=== PATIENT | female | born 1970 | race American Indian/Alaskan Native ===

== ENCOUNTER 2021-12-07 01:19 | Emergency (ER) | payer OTHER ==
[2021-12-07] MEDS ORDERED: SODIUM CHLORIDE 0.9% 1000 ML 1,000 ML IV ONE (03:03)
[2021-12-07] MEDS ORDERED: ONDANSETRON 4 MG/2 ML INJ IV ONE (03:09)
[2021-12-07] MEDS ORDERED: MORPHINE 4 MG/1 ML INJ IV ONE (03:09)
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
[2021-12-07 03:59] LABS: Alanine Aminotransferase 18 units/L (7-56); Albumin 4.5 g/dL (3.9-5); Blood Urea Nitrogen 10 mg/dL (7-17); Calcium 9.6 mg/dL (8.4-10.2); Hemolysis Index 5
[2021-12-07 04:00] LABS: Basophils # (Auto) 0.1 K/mm3 (0.0-0.1); Basophils % (Auto) 0.7 % (0.0-1.8); Eosinophils # (Auto) 0.1 K/mm3 (0.0-0.4); Hematocrit 39.7 % (30.3-42.9); Hemoglobin 13.7 gm/dl (10.1-14.3); Lymphocytes % (Auto) 22.7 % (13.4-35.0); Mean Corpuscular HGB Conc 35 % (30-34); Mean Corpuscular Volume 93 fl (79-97); Monocytes # (Auto) 0.6 K/mm3 (0.0-0.8); Monocytes % (Auto) 6.2 % (0.0-7.3); Platelet Count 308 K/mm3 (140-440); Red Blood Count 4.29 M/mm3 (3.65-5.03); Red Cell Distribution Width 12.7 % (13.2-15.2)
[2021-12-07 04:01] LABS: BUN/Creatinine Ratio 14
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
[2021-12-07] MEDS ORDERED: HYDROmorphone 0.5 MG/0.5 ML INJ IV ONE (05:07)
--- NOTE | 2021-12-07 05:13 | Cat Scan Report ---
CT CHEST, ABDOMEN, AND PELVIS WITH CONTRAST INDICATION / CLINICAL IN[place] [facility] [place]CHNIQUE: Axial CT images were obtained through the chest, abdomen, and pelvis after Omnipaque 300, 100 cc IV contrast. All CT scans at this location are performed using CT dose reduction for ALARA by means of automated exposure control. COMPARISON: None available. FINDINGS: HEART: No significant abnormality. CORONARY ARTERY CALCIFICATION: Absent -- None. THORACIC AORTA: No significant abnormality. MEDIASTINUM / BROOKE: No significant abnormality. PLEURA: No pleural effusion. No pneumothorax. LUNGS: No acute air space or interstitial disease. ADDITIONAL CHEST FINDINGS: None. LIVER: No significant abnormality. GALLBLADDER: No significant abnormality. BILE DUCTS: No significant abnormality. PANCREAS: No significant abnormality. SPLEEN: No significant abnormality. ADRENALS: No significant abnormality. RIGHT KIDNEY / URETER: No significant abnormality. LEFT KIDNEY / URETER: No significant abnormality. STOMACH and SMALL BOWEL: No significant abnormality. COLON: No significant abnormality. APPENDIX: No significant abnormality. PERITONEUM: No free fluid. No free air. No fluid collection. LYMPH NODES: No significant adenopathy. AORTA / ARTERIES: No significant abnormality. IVC / VEINS: No significant abnormality. URINARY BLADDER: No significant abnormality. REPRODUCTIVE ORGANS: No significant abnormality. ADDITIONAL FINDINGS: Bruising left anterior abdominal wall. SKELETAL SYSTEM: No significant abnormality. IMPRESSION: 1. Soft tissue injury left anterior abdominal wall. 2. No injury within the chest, abdomen or pelvis. Signer Name: Daniel Zuleta MD Signed: 12/07/2021 5:09 AM Workstation Name: [id number]
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
[2021-12-07 10:07] VITALS: BP 131/65
== END 2021-12-07 10:46 | disposition short-term general hospital (02) ==
LOC: ED 01:19
DX: S87.82XA Crushing injury of left lower leg, initial encounter (principal); S87.81XA Crushing injury of right lower leg, initial encounter; R60.0 Localized edema; R51.9 Headache, unspecified; R10.9 Unspecified abdominal pain; V49.9XXA Car occupant (driver) (passenger) injured in unspecified traffic accident, initial encounter; W22.10XA Striking against or struck by unspecified automobile airbag, initial encounter; Y93.89 Activity, other specified; Y92.89 Other specified places as the place of occurrence of the external cause; Y99.8 Other external cause status
CPT/HCPCS: 36415; 70450; 71045; 71260; 72125; 73552; 73590; 73610; 73630; 74177; 80053; 82550; 84703; 85025; 86850; 86900; 86901; 96361; 96374; 96375; 99291; J1170; J2270; J2405; J7030; Q9967